=== PATIENT | female | born 1990 | race Caucasian/White ===

== ENCOUNTER 2023-10-15 14:22 | Emergency (ER) | payer OTHER ==
[~2023-10-15] VITALS: Ht 154.9 cm; Wt 54.4 kg
[2023-10-15 14:23] VITALS: BP_SYST 106; PULSE 81; RESP 18; TEMP 97.1; O2SAT 96
[2023-10-15] MEDS ORDERED: DICL50TA9 PO (16:17)
== END 2023-10-15 16:47 | disposition home or self-care (01) ==
LOC: SED 14:22
DX: M54.12 Radiculopathy, cervical region (principal)
CPT/HCPCS: 36415; 84484; 93005; 99284